=== PATIENT | male | born 1995 | race Caucasian/White ===

== ENCOUNTER 2019-01-05 01:34 | Emergency (ER) | payer OTHER ==
[2019-01-05 01:53] LABS: PLATELET COUNT 148 10^3/uL (150-400)
--- NOTE | 2019-01-05 02:12 | EDPHY ---
H & P Stated Complaint: near syncope Time Seen by Provider: 01/05/19 01:56 HPI/ROS: HPI The patient presents with an episode of ALOC which occurred just prior to arrival and was witnessed by several friends. Today the patient had had about 10 alcoholic drinks throughout the day. He used cocaine at about 1:00 p.m. And 4:00 p.m.. He used marijuana about 1 hr prior to his episode. He was feeling generally unwell and dizzy after urinating so he drink a cup of water. He continued to feel unwell and so he got up to get another cup of water and then felt dizzy. He sat down. He had tunnel vision, he lie down and put his feet up though lost consciousness for about 20 sec. His friends were with him when this happened. He denies any preceding chest pain, shortness of breath, palpitations. 911 was called. When he was found, his heart rate was in the 40s and he appeared to be in a junctional rhythm. He was given a dose of atropine in the ambulance with improvement of his heart rate. He says he has had about 10 prior episodes of syncope which have often occurred in the setting of marijuana use, as well as when he is undergoing anxiety and stress. He has not had any preceding chest pain or shortness of breath with these. He did have 2 episodes which occurred while he was exercising at the gym at the end of his workout when he was much younger. He has never been seen by a garnishment specialist or had any testing for his syncope. His father's side of the family has history of obesity and CAD though no sudden cardiac .. REVIEW OF SYSTEMS 10 systems were reviewed and negative with the exception of the elements mentioned in the history of present illness. PMHx: Prior syncopal episodes Soc Hx: College student, here with friends, history of alcohol, marijuana, cocaine use FHx: Father with history of CAD PHYSICAL General Appearance: Alert, no distress Eyes: Pupils equal and round no pallor or injection ENT, Mouth: Mucous membranes moist Respiratory: There are no retractions, lungs are clear to auscultation Cardiovascular: Regular rate and rhythm Gastrointestinal: Abdomen is soft and non-tender, no masses, bowel sounds normal Neurological: A&O, moves all extremities Skin: Warm and dry, no rashes Musculoskeletal: Neck is supple non tender Extremities: symmetrical, full range of motion Psychiatric: Patient is oriented X 3, there is no agitation Source: Patient, EMS Exam Limitations: No limitations - Personal History Current Tetanus Diphtheria and Acellular Pertussis (TDAP): Yes - Medical/Surgical History Hx Asthma: No Hx Chronic Respiratory Disease: No Hx Diabetes: No Hx Cardiac Disease: No Hx Renal Disease: No Hx Cirrhosis: No Hx Alcoholism: No Hx HIV/AIDS: No Hx Splenectomy or Spleen Trauma: No Other PMH: near syncope - Social History Smoking Status: Never smoked Constitutional: Initial Vital Signs Temperature (C) 36.6 C 01/05/19 01:38 Heart Rate 65 01/05/19 01:38 Respiratory Rate 16 01/05/19 01:38 Blood Pressure 120/54 L 01/05/19 01:38 O2 Sat (%) 99 01/05/19 01:38 O2 Delivery Mode Room Air Allergies/Adverse Reactions: No Known Allergies Allergy (Unverified 01/05/19 01:38) Home Medications: Medication Instructions Recorded NK [No Known Home Meds] 01/05/19 Medical Decision Making - Diagnostics EKG Interpretation: EKG: Complete interpretation has been separately recorded in the [email or web address] archive. Summary impression: Normal sinus rhythm Imaging Results: Chest x-ray two view shows no cardiomegaly, no effusion, interpreted by me, radiology interpretation pending. Imaging: I viewed and interpreted images myself Differential Diagnosis: 23-year-old male with history of multiple syncopal episodes presents brought in by ambulance after syncopal episode in the setting of marijuana use, alcohol use. He had preceding lightheadedness and changes to his vision with no chest pain, palpitations, shortness of breath. Paramedics found him with a heart rate of 40 in a junctional rhythm and he was given atropine with some improvement. He now is feeling tired. Plan for chest x-ray, EKG, telemetry monitoring, basic labs. Patient was given a L of IV fluid. He was placed on director of cardiac cath lab with no events. EKG was normal. Chest x-ray was normal. His labs showed elevated blood alcohol level. I did not send urine toxicology is he admits to marijuana and cocaine use today. He was observed for a total of 4 hr. He felt well enough to go home. I stressed to him the importance of following up with Cardiology given his bradycardia with questionable junctional rhythm. He is able to follow up and will be discharged home with strict return precautions given. - Data Points Laboratory Results: Laboratory Results 01/05/19 01:40 01/05/19 01:40 Point of Care Test Results: Chemistry 01/05/19 01:48 POC Troponin I 0.00 ng/mL ng/mL (0.00-0.08) Departure - Departure Disposition: Home, Routine, Self-Care Clinical Impression: Syncope, Bradycardia, Polysubstance abuse Condition: Good Instructions: Syncope (ED) Additional Instructions: Please make sure to drink plenty of fluids. Please avoid drinking alcohol, using drugs or marijuana. Please call the garnishment specialist on Sunday to arrange for an appointment. Please return to the emergency department if your worse in any way. Referrals: Narinder Carl MD [Medical Doctor] - As per Instructions
[2019-01-05 06:14] VITALS: BP 114/43
--- NOTE | 2019-01-05 07:00 | CPEKG ---
Test Reason : OPEN Blood Pressure : / mmHG Vent. Rate : 070 BPM Atrial Rate : 069 BPM P-R Int : 129 ms QRS Dur : 104 ms QT Int : 381 ms P-R-T Axes : 018 051 036 degrees QTc Int : 412 ms Sinus rhythm Confirmed by Rachel Farley ([id number]) on 01/05/2019 6:59:33 AM Referred By: PHYSICIAN ED Confirmed By:Rachel Farley
== END 2019-01-05 06:28 | disposition home or self-care (01) ==
DX: R55 Syncope and collapse (principal); F19.10 Other psychoactive substance abuse, uncomplicated
CPT/HCPCS: 84484-ER; G0480